=== PATIENT | male | born 1950 | race Caucasian/White ===

== ENCOUNTER 2023-04-12 06:34 | Day surgery (SDC) | payer MEDICARE, OTHER ==
[~2023-04-12] VITALS: Ht 167.6 cm; Wt 68.0 kg
[~2023-04-12 06:34] MED LIST: ACET-897 PO; CENT1TAB2 PO; CYCLOPENTOLATE 1% OPHTH SOLN 2ML BTL OD SCH; DOCU250C7 PO; FERR325T3 PO; FLON1SPR; KETO5DRO33 OP; LORA-1041 PO; METF500T13 PO; METO1TAB7 PO; OFLOXACIN 0.3 % (OCUFLOX) OPTH SOL 5ML OD SCH; OMEG10002 PO; PANT40TA29 PO; PHENYLEPHRINE 2.5% OPHTH SOL 2ML OD SCH; PROPARACAINE 0.5% OPHTH SOL 15ML OD ONE; ROSU40TA4 PO; TROPICAMIDE 1% OPHTH SOLN 15ML OD SCH; VITA250T18 PO; XARE20TA PO; ZOLO100T PO
[2023-04-12] MEDS ORDERED: LIDOCAINE 1% SDV 5ML VIAL As Ordered ONE (06:35)
[2023-04-12] MEDS ORDERED: BSS IRR 500ML/OMIDRIA 4ML IRR BAG (OR ONLY) As Ordered ONE (06:36)
[2023-04-12] MEDS ORDERED: TOBRADEX OPHTH OINT 3.5 GM As Ordered ONE (06:36)
[2023-04-12] MEDS ORDERED: MIDAZOLAM INJ 2MG/2ML VIAL As Ordered ONE (07:18)
[2023-04-12] MEDS ORDERED: CEFUROXIME 1MG/0.1ML INTRACAMERAL INJ As Ordered ONE (08:23)
[2023-04-12 08:38] VITALS: BP 158/83; TEMP 97; O2SAT 97
== END 2023-04-12 08:50 | disposition home or self-care (01) ==
LOC: M SDC 06:34
PROVIDERS: ATTEND Ophthalmology
DX: H25.11 Age-related nuclear cataract, right eye (principal); E11.9 Type 2 diabetes mellitus without complications; I48.20 Chronic atrial fibrillation, unspecified; G47.30 Sleep apnea, unspecified; Z86.73 Personal history of transient ischemic attack (TIA), and cerebral infarction without residual deficits; F41.9 Anxiety disorder, unspecified; F32.A Depression, unspecified; K22.70 Barrett's esophagus without dysplasia; Z87.891 Personal history of nicotine dependence; Z88.0 Allergy status to penicillin; Z79.899 Other long term (current) drug therapy; Z79.01 Long term (current) use of anticoagulants; Z79.84 Long term (current) use of oral hypoglycemic drugs
CPT/HCPCS: 66984; 92015; J0697; J1097; J2250; V2632

== ENCOUNTER → 2023-05-03 | Day surgery (SDC) | payer OTHER, MEDICARE ==
[~2023-05-03] VITALS: Ht 167.6 cm; Wt 70.1 kg
[~2023-05-03] MED LIST changes: -CYCLOPENTOLATE 1% OPHTH SOLN 2ML BTL OD SCH; +CYCLOPENTOLATE 1% OPHTH SOLN 2ML BTL OS SCH; +LIDOCAINE 1% SDV 5ML VIAL As Ordered ONE; +MIDAZOLAM INJ 2MG/2ML VIAL As Ordered ONE; +MOXIFLOXACIN 0.6MG/0.4ML INTRAOCULAR SYRINGE IO ONE; -OFLOXACIN 0.3 % (OCUFLOX) OPTH SOL 5ML OD SCH; +OFLOXACIN 0.3 % (OCUFLOX) OPTH SOL 5ML OS SCH; -PHENYLEPHRINE 2.5% OPHTH SOL 2ML OD SCH; +PHENYLEPHRINE 2.5% OPHTH SOL 2ML OS SCH; -PROPARACAINE 0.5% OPHTH SOL 15ML OD ONE; +PROPARACAINE 0.5% OPHTH SOL 15ML OS ONE; -TROPICAMIDE 1% OPHTH SOLN 15ML OD SCH; +TROPICAMIDE 1% OPHTH SOLN 15ML OS SCH; +fentaNYL 100 MCG/2 ML INJECTION As Ordered ONE
[2023-05-03 08:46] VITALS: BP 146/89; TEMP 96.7; O2SAT 96
== END | disposition home or self-care (01) ==
LOC: M SDC 06:48
PROVIDERS: ATTEND Ophthalmology
DX: H25.12 Age-related nuclear cataract, left eye (principal); E11.9 Type 2 diabetes mellitus without complications; I48.20 Chronic atrial fibrillation, unspecified; G47.30 Sleep apnea, unspecified; Z86.73 Personal history of transient ischemic attack (TIA), and cerebral infarction without residual deficits; Z88.0 Allergy status to penicillin; Z79.899 Other long term (current) drug therapy; Z79.84 Long term (current) use of oral hypoglycemic drugs; Z79.01 Long term (current) use of anticoagulants
CPT/HCPCS: 66984; 92015; J2250; J3010; V2632